=== PATIENT | female | born 1970 | race Caucasian/White ===

== ENCOUNTER 2016-06-13 14:53 | Emergency (ER) | payer OTHER ==
[2016-06-13] MEDS ORDERED: HALOPERIDOL LACT 5 MG/ML INJ ONE (15:23)
--- NOTE | 2016-06-13 15:29 | EDPHY ---
H & P Stated Complaint: Altered mental status;acting strange since last evening Time Seen by Provider: 06/13/16 15:09 HPI/ROS: CHIEF COMPLAINT: Altered mental status HISTORY OF PRESENT ILLNESS: The patient is a 46-year-old female who has a history of postural hypotension for several years and takes a vasopressin who over the last several days has become increasingly altered and confused. Her family including , mom and sister states that yesterday she was acting manic and aggressively typing on her computer writing an e-mail and setting a timer to make sure she did not go over 15 minutes. Today she is perseverating and keep stating that if we know the pass code to her cell phone we can leave the hospital. She is moving all of her extremities. She is talking. She is oriented to state but not town. It is difficult to get her to answer most questions. She mumbles to herself about her cell phone and past words when she is not being questioned. She did have a sinus infection 1 week ago and was treated with unknown antibiotics. REVIEW OF SYSTEMS: per family Constitutional: See HPI EENTM: denies: blurred vision, double vision, nose congestion Respiratory: denies: cough, shortness of breath Cardiac: denies: chest pain, irregular heart rate, lightheadedness, palpitations Gastrointestinal/Abdominal: denies: abdominal pain, diarrhea, nausea, vomiting, blood streaked stools Genitourinary: denies: dysuria, frequency, hematuria, pain Musculoskeletal: denies: joint pain, muscle pain Skin: denies: lesions, rash, jaundice, bruising Neurological: denies: headache, numbness, paresthesia, tingling, dizziness, weakness Hematologic/Lymphatic: denies: blood clots, easy bleeding, easy bruising Immunologic/allergic: denies: HIV/AIDS, transplant EXAM: GENERAL: Well-appearing, well-nourished and in no acute distress. HEAD: Atraumatic, normocephalic. EYES: Pupils equal round and reactive to light, extraocular movements intact, sclera anicteric, conjunctiva are normal. ENT: TMs normal, nares patent, oropharynx clear without exudates. Moist mucous membranes. NECK: Normal range of motion, supple without lymphadenopathy or JVD. LUNGS: Breath sounds clear to auscultation bilaterally and equal. No wheezes rales or rhonchi. HEART: Regular rate and rhythm without murmurs, rubs or gallops. ABDOMEN: Soft, nontender, normoactive bowel sounds. No guarding, no rebound. No masses appreciated. BACK: No CVA tenderness, no spinal tenderness, step-offs or deformities EXTREMITIES: Normal range of motion, no pitting or edema. No clubbing or cyanosis. NEUROLOGICAL: Cranial nerves II through XII grossly intact. Pressured speech , weak gait requires assistance but this is baseline. 5/5 strength, normal movement in all extremities, normal sensation PSYCH: laughing inappropriately, mumbling to self, perseverating about cell phone and pass codes. Oriented only to [place]. Will not answer most questions. SKIN: Warm, dry, normal turgor, no visible rashes or lesions. Source: Patient Exam Limitations: No limitations - Personal History LMP (Females 10-55): Unknown Current Tetanus Diphtheria and Acellular Pertussis (TDAP): Unsure - Medical/Surgical History Hx Asthma: No Hx Chronic Respiratory Disease: No Hx Diabetes: No Hx Cardiac Disease: No Hx Renal Disease: No Other PMH: Postural hypotension. Chronic Lyme disease? - Family History Significant Family History: No pertinent family hx - Social History Smoking Status: Never smoked Alcohol Use: Sober Drug Use: None Constitutional: Initial Vital Signs Temperature (C) 36.4 C 06/13/16 14:57 Heart Rate 98 06/13/16 14:57 Respiratory Rate 18 06/13/16 14:57 Blood Pressure 109/82 H 06/13/16 14:57 O2 Sat (%) 96 06/13/16 14:57 O2 Delivery Mode Room Air Allergies/Adverse Reactions: No Known Allergies Allergy (Unverified 06/13/16 14:56) Home Medications: Medication Instructions Recorded Amoxicillin/Clavulanate Pot 875 mg PO BID 06/13/16 [Augmentin 875 MG TAB (*)] Hydrocodone/Acetaminophen [[place] 1 - 2 tab PO Q6H PRN 06/13/16 5/325 (*)] Sertraline HCl [Zoloft 100mg (*)] 100 mg PO DAILY 06/13/16 Vasopressin 06/13/16 clonazePAM [Klonopin (*)] 0.5 mg PO DAILY 06/13/16 clonazePAM [Klonopin (*)] 0.75 mg PO HS 06/13/16 risperiDONE [Risperdal] 2 mg PO HS #14 tab 06/13/16 Medical Decision Making - Diagnostics EKG Interpretation: An EKG obtained and was read and documented in trace view. Please see trace view for full reading and report. Sinus rhythm, no acute ischemic changes Imaging: Results: MRI scan of the brain was obtained. The results of the study are negative for infection or stroke mass. The study was read by Dr. [place]. I viewed the images myself on the PACS system. ED Course/Re-evaluation: The patient is doing much better after receiving held on Ativan. She is answering some questions appropriately. I discussed her lab work and MRI with her family. feels that this is likely psychiatric issue. I will clear her for psychiatric evaluation. She is not on a hold. She has not yet provided urinalysis. 10:10 p.m. the patient has been evaluated repeatedly by mental health and there psychologist. The patient has completely cleared and is now mentating normally. We suspect that the Haldol had an affect and that there was a component of anxiety that is now resolved. Family is comfortable taking her home. The psychologist is recommending respite all 2 mg every evening for about 2 weeks. She will follow up with her psychologist tomorrow and re- evaluate from there. Family will bring her back here if she has any more acute psychotic symptoms. She denies suicidal or homicidal ideation and contracts for safety. Differential Diagnosis: Partial list of the Differential diagnosis considered include but were not limited to; psychosis, nkechi, stroke, infection, substance abuse and although unlikely based on the history and physical exam, I also considered urinary tract infection, meningitis, seizure, migraine, thrombus. I discussed these differential diagnoses and the plan with the patient and as well as the usual and expected course. The family understands that the diagnosis is provisional and that in medicine we are not always correct and that further workup is often warranted. Usual and customary warnings were given. All of the family's questions were answered. The family was instructed to return to the emergency department should the symptoms at all worsen or return, otherwise to followup with the physician as we discussed. - Data Points Laboratory Results: Laboratory Results 06/13/16 15:10 06/13/16 15:10 06/13/16 06/13/16 19:37 15:10 WBC 6.48 10^3/uL (3.80-9.50) RBC 5.21 10^6/uL (4.18-5.33) Hgb 16.3 g/dL (12.6-16.3) Hct 44.6 % (38.0-47.0) MCV 85.6 fL (81.5-99.8) MCH 31.3 pg (27.9-34.1) MCHC 36.5 g/dL (32.4-36.7) RDW 12.8 % (11.5-15.2) Plt Count 405 H 10^3/uL (150-400) MPV 7.9 L fL (8.7-11.7) Neut % (Auto) 62.5 % (39.3-74.2) Lymph % (Auto) 24.4 % (15.0-45.0) [place] % (Auto) 11.3 % (4.5-13.0) Eos % (Auto) 0.2 L % (0.6-7.6) Baso % (Auto) 1.4 % (0.3-1.7) Nucleat RBC Rel Count 0.0 % (0.0-0.2) Absolute Neuts (auto) 4.06 10^3/uL (1.70-6.50) Absolute Lymphs (auto) 1.58 10^3/uL (1.00-3.00) Absolute Monos (auto) 0.73 10^3/uL (0.30-0.80) Absolute Eos (auto) 0.01 L 10^3/uL (0.03-0.40) Absolute Basos (auto) 0.09 10^3/uL (0.02-0.10) Absolute Nucleated RBC 0.00 10^3/uL (0-0.01) Immature Gran % 0.2 % (0.0-1.1) Immature Gran # 0.01 10^3/uL (0.00-0.10) Sodium 138 mEq/L (134-144) Potassium 4.1 mEq/L (3.5-5.2) Chloride 101 mEq/L (97-110) Carbon Dioxide 23 mEq/l (22-31) Anion Gap 14 mEq/L (8-16) BUN 11 mg/dL (7-23) Creatinine 0.6 mg/dL (0.6-1.0) Estimated GFR > 60 Glucose 143 H mg/dL (70-100) Calcium 10.0 mg/dL (8.5-10.4) TSH 2.370 uIU/mL (0.465-4.680) Beta HCG, Qual NEGATIVE Urine Color [place] Urine Appearance MODERATELY TURBID Urine pH 6.0 (5.0-7.5) Ur Specific [place] 1.020 (1.002-1.030) Urine Protein NEGATIVE (NEGATIVE) Urine Ketones 1+ H (NEGATIVE) Urine Blood NEGATIVE (NEGATIVE) Urine Nitrate NEGATIVE (NEGATIVE) Urine Bilirubin NEGATIVE (NEGATIVE) Urine Urobilinogen NEGATIVE EU (0.2-1.0) Ur Leukocyte Esterase NEGATIVE (NEGATIVE) Ur Culture Indicated? NOT INDICATED (NI) Urine Glucose NEGATIVE (NEGATIVE) Salicylates < 1.0 L mg/dL (2.0-20.0) Urine Opiates Screen NEGATIVE (NEGATIVE) Acetaminophen < 10 L mcg/mL (10.0-30.0) Urine Barbiturates NEGATIVE (NEGATIVE) Ur Phencyclidine Scrn NEGATIVE (NEGATIVE) Ur Amphetamine Screen NEGATIVE (NEGATIVE) U Benzodiazepines Scrn NON-NEGATIVE H (NEGATIVE) Urine Cocaine Screen NEGATIVE (NEGATIVE) U Marijuana (THC) Screen NEGATIVE (NEGATIVE) Ethyl Alcohol < 10 mg/dL (0-10) Medications Given: Discontinued Medications Haloperidol Lactate (Haldol Injection) 5 mg IVP EDNOW ONE Stop: 06/13/16 15:37 Last Admin: 06/13/16 15:43 Dose: 5 mg Sodium Chloride (Ns) 1,000 mls @ 0 mls/hr IV ONCE ONE PRN Reason: Wide Open Stop: 06/13/16 18:01 Last Admin: 06/13/16 18:53 Dose: 1,000 mls Lorazepam (Ativan Injection) 1 mg IVP EDNOW ONE Stop: 06/13/16 16:17 Last Admin: 06/13/16 16:29 Dose: 1 mg Risperidone (Risperdal) 2 mg PO ONCE ONE Stop: 06/13/16 22:23 Last Admin: 06/13/16 22:35 Dose: 2 mg Departure - Departure Disposition: Home, Routine, Self-Care Clinical Impression: Acute psychosis Condition: Fair Instructions: Brief Psychotic Disorder (ED) Additional Instructions: Follow-up with her psychologist tomorrow as planned. Referrals: IN STATE,. [Primary Care Provider] - As per Instructions Prescriptions: risperiDONE [Risperdal] 2 mg PO HS #14 tab
[2016-06-13 15:31] LABS: % IMMATURE GRANULYOCYTES 0.2 % (0.0-1.1); ABSOLUTE IMMATURE GRANULOCYTES 0.01 10^3/uL (0.00-0.10); ADD DIFF? NO; ADD MORPH? NO; ADD SCAN? NO; ATYPICAL LYMPHOCYTE FLAG 30 (0-99); FRAGMENT RBC FLAG 0 (0-99); HEMATOCRIT 44.6 % (38.0-47.0); HEMOGLOBIN 16.3 g/dL (12.6-16.3); LEFT SHIFT FLG 0 (0-99); LIPEMIA HEMOLYSIS FLAG 90 (0-99); MEAN CELL HEMOGLOBIN 31.3 pg (27.9-34.1); MEAN CELL HEMOGLOBIN CONCENTR. 36.5 g/dL (32.4-36.7); MEAN CELL VOLUME 85.6 fL (81.5-99.8); MEAN PLATELET VOLUME 7.9 fL (8.7-11.7); PLATELET CLUMPS FLAG 0 (0-99); PLATELET COUNT 405 10^3/uL (150-400); RED BLOOD CELL COUNT 5.21 10^6/uL (4.18-5.33); RED CELL DISTRIBUTION WIDTH 12.8 % (11.5-15.2)
[2016-06-13] MEDS ORDERED: HALOPERIDOL LACT 5 MG/ML INJ IVP ONE (15:36)
[2016-06-13 15:43] LABS: ANION GAP 14 mEq/L (8-16); CARBON DIOXIDE 23 mEq/l (22-31); CHLORIDE 101 mEq/L (97-110); CREATININE 0.6 mg/dL (0.6-1.0); ETHANOL SERUM < 10 mg/dL (0-10); GLOMERULAR FILTRATION RATE > 60; GLUCOSE 143 mg/dL (70-100); POTASSIUM 4.1 mEq/L (3.5-5.2); SALICYLATE < 1.0 mg/dL (2.0-20.0); SODIUM 138 mEq/L (134-144)
--- NOTE | 2016-06-13 15:43 | CPEKG ---
Heart Rate: 86 RR Interval: 698 P-R Interval: 152 QRSD Interval: 104 QT Interval: 376 QTC Interval: 450 P [place]: 36 QRS [place]: 41 T Wave [place]: 35 EKG Severity - BORDERLINE ECG - EKG Impression: SINUS RHYTHM EKG Impression: BORDERLINE T ABNORMALITIES, ANTERIOR LEADS Electronically Signed By: Raymundo Singh 13-Jun-2016 15:47:48
[2016-06-13] MEDS ORDERED: LORazepam 2 MG/ML INJ IVP ONE (16:16)
[2016-06-13] MEDS ORDERED: LORazepam 2 MG/ML INJ ONE (16:17)
[2016-06-13] MEDS ORDERED: NS 1,000 ML IV ONE (18:00)
--- NOTE | 2016-06-13 18:23 | MR ---
MRI of the Brain (Without Contrast) June 13, 2016 at 1654 Hours Indication: Altered mental status. Technique: Sagittal and axial T1, axial fast inversion recovery, fast T2-weighted, and diffusion-cecilia ghted axial images were obtained without contrast. Comparison: None. Findings: Diffusion-weighted imaging is normal with no evidence of acute ischemia. Normal signal of the castillo and white matter. The ventricles are normal caliber and midline. No intracranial hemorrhage, mass, or extraaxial fluid collection. Normal flow-void in the superior sagittal sinus, basilar arter y, and bilateral internal carotid arteries indicating patency. The pituitary gland, orbits, and cervi cooccipital junction are unremarkable. Pituitary gland is normal in size. A 1.5-cm retention cyst res ides in the right maxillary sinus and minimal fluid is present in the left mastoid air cells. No evid ence of acute sinusitis. Impression: Normal brain. No evidence of ischemia, mass, or white matter disease. Comment: Results were called to Dr. Singh at 1727 hours on June 13, 2016.
[2016-06-13 21:09] LABS: COLOR AMBER; LEUKOCYTE ESTERASE,URINE NEGATIVE (NEGATIVE); NITRITE,URINE NEGATIVE (NEGATIVE)
[2016-06-13 21:13] VITALS: RESP 14; O2SAT 96
[2016-06-13] MEDS ORDERED: risperiDONE 2 MG TAB PO ONE (22:22)
[2016-06-13 22:53] VITALS: BP 120/75; PULSE 84; TEMP 97.9
== END 2016-06-13 22:52 | disposition home or self-care (01) ==
DX: F23 Brief psychotic disorder (principal)
CPT/HCPCS: 80305; 96374; G0480